=== PATIENT | female | born 1965 | race Caucasian/White ===

== ENCOUNTER 2023-02-27 13:42 | Emergency (ER) | payer BC, SELFPAY ==
[2023-02-27 13:49] VITALS: BP 112/72; PULSE 111; RESP 20; TEMP 36.9; O2SAT 98
--- NOTE | 2023-02-27 14:25 | ED.NAVMDI ---
HPI - Nausea/Vomiting/Diarrhea General Chief complaint: Nausea/Vomiting/Diarrhea Stated complaint: Fever/Diarrhea Source: patient, family and RN notes reviewed History of Present Illness HPI Narrative: 58-year-old female presents to urgent care with asthma at side. Patient states she has been having diarrhea, abdominal pains, nausea, and fevers since Tuesday night. Patient denies any pain, chest pain, or shortness of breath. Patient does report feeling dizzy at times. Patient has attempted taking Imodium without relief. Related Data Home Medications Medication Instructions Recorded Confirmed atorvastatin 10 mg tablet mg 02/27/23 lisinopril 20 tablet 02/27/23 mg-hydrochlorothiazide 12.5 mg tablet Allergies Allergy/AdvReac Type Severity Reaction Status Date / Time Sulfa (Sulfonamide Allergy Intermediate Rash Verified 11/24/18 19:30 Antibiotics) Review of Systems Review of Systems: CONSTITUTIONAL: Denies chills, or sweats. EYES: Denies visual changes, redness, or discharge. ENT: Denies otalgia and sore throat CARDIOVASCULAR: Denies chest pain, palpitations, or edema. RESPIRATORY: Denies cough or dyspnea. GENITOURINARY: Denies dysuria or hematuria. SKIN: Denies rash or itching. MUSCULOSKELETAL: Denies back pain, joint pain, or myalgia. NEUROLOGIC: Denies headache, numbness, or weakness. Pertinent positives per HPI. [facility] Past Medical History Medical History (Updated 02/27/23 @ 14:37 by Ragini Amador, BAO) Anxiety Bilateral breast cysts History of hypertension Incontinence Surgical History Surgical History (Updated 10/29/21 @ 11:33 by PRITI Crespo) Delivery by section (04/28/05) Primary - elective - hx fractured tailbone History of gynecological procedure (06/21/05) mirena iud insertion / 07/13/2010 mirena iud replacement/ 07/10/2015 mirena IUD removal History of gynecological procedure (11/16/07) TVT- urinary incontinence History of hysteroscopy (03/25/16) Novasure ablation/ hysterscopy/ D&C- menorrhagia, dysmenorrhea - benign History of hysteroscopy (~03/04/02) hysteroscopy BX benign Family History Family History (Updated 10/29/21 @ 11:35 by PRITI Crespo) Father Cerebrovascular accident Hypertension Mother Hypertension Breast cancer Bundle branch block Cardiomyopathy History of placement of internal cardiac defibrillator Other Breast cancer Maternal aunt Comments At the time of my signature, I reviewed and agree with the nursing past medical, surgical, social, and family history. There is no relevant family history pertinent to the patient complaint. Exam Narrative: GENERAL: This is a well-developed patient, appears ill, pale. HEAD: normocephalic, atraumatic. EYES: Sclera clear/white. Vision is grossly intact. EARS: External ears normal, auditory canals clear and without drainage. Hearing grossly intact. NOSE: External nose normal with no obvious nasal discharge, nares without redness, no rhinorrhea. THROAT: Mucous membranes dry, posterior pharynx clear. NECK: Neck supple, non-tender without lymphadenopathy, masses or thyromegaly. CARDIOVASCULAR: Regular rate and rhythm without murmurs, gallops, or rubs. RESPIRATORY: Clear to auscultation. Breath sounds equal bilaterally. No wheezes, rales, or rhonchi. GASTROINTESTINAL: Abdomen soft, non-tender, nondistended. Bowel sounds are active. No hepato-splenomegaly, or palpable masses. No guarding. SKIN: warm, intact with no suspicious lesions or rash, good texture and turgor. NEURO: awake, alert, and oriented to person, place and time. There were no obvious focal neurologic abnormalities. Course Course Level of Care: Express Care Visit Vital Signs Vital signs: Vital Signs Temperature 98.5 F 02/27/23 13:49 Pulse Rate 111 H 02/27/23 13:49 Respiratory Rate 20 02/27/23 13:49 Blood Pressure 112/72 02/27/23 13:49 Pulse Oximetry 98 02/27/23 13:49 Oxygen
[2023-02-27] MEDS: ONDANSETRON HCL ODT 4 MG TABLET PO (14:34)
== END 2023-02-27 14:48 | disposition short-term general hospital (02) ==
PROVIDERS: Emergency Provider Nurse Practitioner Family; PCP Family Medicine
DX: K52.9 Noninfective gastroenteritis and colitis, unspecified (principal); I10 Essential (primary) hypertension
CPT/HCPCS: 99213; A9270; G0463

== ENCOUNTER 2024-01-02 14:39 | Outpatient (CLI) | payer BC, SELFPAY ==
--- NOTE | ~2024-01-02 | US_ITS ---
Pelvic ultrasound. Clinical History: Pelvic pain Technique: Realtime transabdominal and transvaginal scanning of the pelvis was performed. Color flow Doppler and Doppler spectral analysis were performed. Findings: The uterus is anteverted. The endometrial stripe has a thickness of 3 mm. Hypoechoic 3.1 c m ovoid mass is compatible with fibroid, exophytic.. Neither ovary visualized. No adnexal mass seen otherwise. There is no evidence of free fluid in the cul de sac. Impression: 3.1 cm exophytic fundal fibroid. Reviewed, dictated and finalized at location M. Impression: 3.1 cm exophytic fundal fibroid.
== END 2024-01-02 14:40 | disposition home or self-care (01) ==
LOC: GOSHIMG 14:39
PROVIDERS: PCP Family Medicine; Visit Provider Obstetrics & Gynecology
DX: D25.9 Leiomyoma of uterus, unspecified (principal)
CPT/HCPCS: 76830; 76856